=== PATIENT | male | born 1980 | race African-American/Black ===

== ENCOUNTER 2023-05-28 21:47 | Emergency (ER) | payer MEDICAID, OTHER ==
[~2023-05-28] VITALS: Ht 175.3 cm; Wt 78.0 kg
[2023-05-28 22:13] VITALS: BP 125/66; PULSE 87; RESP 16; TEMP 99; O2SAT 100
[2023-05-28] MEDS ORDERED: LIDOCAINE HCL/PF 1% 10 MG/ML 5ML VIAL INFIL ONE (22:30)
== END 2023-05-29 00:17 | disposition home or self-care (01) ==
LOC: ER 21:47
DX: L03.012 Cellulitis of left finger (principal)
CPT/HCPCS: 10060; 99282; J3490; Z7610; 99281